=== PATIENT | female | born 1990 | race Caucasian/White ===

== ENCOUNTER → 2018-04-22 | Outpatient (REF) | payer OTHER | LOC: M LAB REF 17:27 | DX: Z12.4 Encounter for screening for malignant neoplasm of cervix (principal) ==

== ENCOUNTER → 2018-10-21 | Outpatient (CLI) | payer OTHER ==
[~2018-10-21] MED LIST: ACET500C PO; IBUP60TA PO; PREN1TAB11 PO
[2018-10-21 10:59] LABS: BASO % 0.4 % (0.0-1.0); EOS # 0.1 10^3/uL (0.0-0.50); EOS % 1.8 % (0.0-3.0); HEMATOCRIT 39.7 % (36.0-47.0); HEMOGLOBIN 13.4 g/dl (12.0-15.5); LYMPH # 1.5 10^3/uL (1.5-6.5); LYMPH % 20.7 % (24.0-44.0); MEAN CORPUSCULAR HEMOGLOBIN 29.1 pg (27.0-33.0); MEAN CORPUSCULAR HGB CONC 33.8 g/dl (32.0-36.5); MEAN CORPUSCULAR VOLUME 86.1 fl (80.0-96.0); MONO # 0.4 10^3/uL (0.0-0.8); MONO % 5.9 % (0.0-5.0); NEUTROPHILS # 5.1 10^3/uL (1.8-7.7); NEUTROPHILS % 70.9 % (36.0-66.0); PLATELET COUNT, AUTOMATED 276 10^3/uL (150-450); RED BLOOD COUNT 4.61 10^6/uL (4.00-5.40); WHITE BLOOD COUNT 7.2 10^3/uL (4.0-10.0)
[2018-10-21 12:39] LABS: CHLAMYDIA DNA AMPLIFICATION NEGATIVE (NEGATIVE); GC DNA AMPLIFICATION NEGATIVE (NEGATIVE)
[2018-10-21 13:18] LABS: HIV 1&2 SCREEN CENTAUR NEGATIVE (NEGATIVE); RUBELLA IgG QUALITATIVE IMMUNE (IMMUNE)
== END ==
LOC: M LAB 10:28
PROVIDERS: ATTEND Advanced Practice Midwife
DX: Z34.81 Encounter for supervision of other normal pregnancy, first trimester (principal)

== ENCOUNTER → 2018-12-13 | Outpatient (CLI) | payer OTHER ==
[~2018-12-13] MED LIST changes: +IBUP600T42 PO; -IBUP60TA PO
--- NOTE | 2018-12-13 13:01 | REP ---
Obstetric sonography: History: Supervision of for anatomy. Findings: Scanning through the gravid uterus demonstrates a viable single intrauterine gestation in a breech lie. motion is observed and heart rate is recorded at 160 beats per minute. An anterior placenta is seen grade 0 without evidence of previa. Amniotic fluid is subjectively normal. Closed cervical length is measured at 5.4 cm, viewed transabdominally. No extrauterine abnormalities observed. No anomaly is seen. The following anatomic structures are identified and felt to be sonographically unremarkable: cranium, choroid plexus, cavum, cerebellum and posterior fossa, face and profile, lungs, four-chamber heart with left and right ventricular outflow tract views, diaphragm, left-sided stomach, abdominal wall cord insertion, three-vessel umbilical cord, kidneys and bladder, spine, upper and lower extremities. Biometry chart: BPD 4.7 cm = 20 weeks 1 day Head circumference 17.6 cm = 20 weeks 1 day Abdominal circumference 15.1 cm = 20 weeks 2 days Femur length 3.3 cm = 20 weeks 1 day Humeral length 3.2 cm = 20 weeks 6 days HC/AC ratio normal 1.17. Cephalic index normal 0.73. Estimated weight 340 grams, 0 pounds 12 ounces, 59th percentile for 19 weeks 6 days. Impression: Viable single intrauterine gestation at 20 weeks 2 days by today's composite criteria. RIVAS by today's sonography April 30, 2019. anatomic survey is felt to be complete. Electronically Signed by Seth Saucedo MD 12/13/2018 01:23 P
== END ==
LOC: M RAD 11:32
PROVIDERS: ATTEND Obstetrics & Gynecology
DX: Z34.81 Encounter for supervision of other normal pregnancy, first trimester (principal)

== ENCOUNTER → 2019-02-10 | Outpatient (CLI) | payer OTHER ==
[2019-02-10 12:41] LABS: HEMATOCRIT 36.1 % (36.0-47.0); HEMOGLOBIN 11.8 g/dl (12.0-15.5); MEAN CORPUSCULAR HEMOGLOBIN 28.4 pg (27.0-33.0); MEAN CORPUSCULAR HGB CONC 32.7 g/dl (32.0-36.5); PLATELET COUNT, AUTOMATED 300 10^3/uL (150-450); RED BLOOD COUNT 4.15 10^6/uL (4.00-5.40)
== END ==
LOC: M LAB 10:47
PROVIDERS: ATTEND Advanced Practice Midwife
DX: Z36.89 Encounter for other specified antenatal screening (principal); Z3A.00 Weeks of gestation of pregnancy not specified

== ENCOUNTER → 2019-03-24 | Outpatient (CLI) | payer OTHER ==
[~2019-03-24] MED LIST changes: +ACET-683 PO; +IBUP80TA PO; +RANI15TA PO
--- NOTE | 2019-03-25 06:25 | REP ---
Obstetric sonography: History: Size date discrepancy, third trimester study. Evaluate growth and amniotic fluid index. Findings: Scanning through the gravid uterus demonstrates a viable single intrauterine gestation in a cephalic lie. motion is observed and heart rate is recorded at 141 beats per minute. An anterior grade 3 placenta is seen without evidence of previa or abruption. Amniotic fluid is subjectively normal. Closed cervical length viewed transabdominally measures 3.1 cm. No extrauterine abnormality is observed. There has been appropriate interval growth. The following anatomic structures are again identified and felt to be unremarkable: cranium, choroid plexus, cavum, face and profile, diaphragm, left-sided stomach, three-vessel cord, kidneys and bladder, spine. Biometry chart: BPD 8.6 cm 34 weeks 5 days Head circumference 30.6 cm 34 weeks 1 day Abdominal circumference 29.8 cm 33 weeks 5 days Femur length 6.7 cm 34 weeks 2 days Humeral length 5.7 cm 32 weeks 6 days HC/AC ratio normal 1.03. Cephalic index normal 0.80. Estimated weight 2334 grams, 5 pounds 2 ounces, 42nd percentile for 34 weeks 2 days. MT normal 11.7 cm. SD ratio normal by Doppler 2.60 in the umbilical cord artery. Impression: Viable single intrauterine gestation at 34 weeks 0 days by today's composite sonographic criteria. Expected gestational age estimate based on prior sonography is 34 weeks 5 days. RIVAS by prior sonography April 30, 2019. Electronically Signed by Seth Saucedo MD 03/25/2019 11:42 A
== END ==
LOC: M RAD 13:26
PROVIDERS: ATTEND Advanced Practice Midwife
DX: O26.843 Uterine size-date discrepancy, third trimester (principal)

== ENCOUNTER → 2019-04-03 | Outpatient (REF) | payer OTHER ==
[~2019-04-03] MED LIST changes: -ACET-683 PO; -IBUP80TA PO; -RANI15TA PO
== END ==
LOC: M LAB REF 12:50
PROVIDERS: ATTEND Advanced Practice Midwife
DX: Z34.83 Encounter for supervision of other normal pregnancy, third trimester (principal)

== ENCOUNTER 2019-04-27 07:56 | Inpatient (IN) | payer OTHER ==
[2019-04-27] VITALS (12 sets, daily range): BP systolic 113–137; BP diastolic 56–83
[~2019-04-27] VITALS: Ht 162.6 cm; Wt 67.0 kg
[2019-04-27] MEDS ORDERED: RANI15TA PO (08:21)
[2019-04-27] MEDS ORDERED: OXYTOCIN 30 UNITS IN 0.9% NaCl 500ML IV BAG (J2590) As Ordered ONE ×2 (09:27→10:50)
[2019-04-27 09:44] LABS: HEMATOCRIT 35.8 % (36.0-47.0); HEMOGLOBIN 11.8 g/dl (12.0-15.5); MEAN CORPUSCULAR HEMOGLOBIN 27.4 pg (27.0-33.0); MEAN CORPUSCULAR VOLUME 83.3 fl (80.0-96.0); PLATELET COUNT, AUTOMATED 282 10^3/uL (150-450)
--- NOTE | 2019-04-27 10:15 | HPE ---
DATE OF ADMISSION: 04/27/2019 REASON FOR ADMISSION: Labor. HISTORY OF PRESENT ILLNESS: Ms. Rizo is a 28-year-old, 2, para 1, who presents at 39 weeks and 1 day by her last menstrual period and confirmed by first trimester ultrasound with complaints of contractions. She reports contractions which started at 4:00 a.m. that have continue to increase in intensity and frequency. She denies any vaginal bleeding or leakage of fluid. She reports active movements. Her course has been unremarkable. She initiated care in her first trimester an has been appropriate throughout. PAST MEDICAL HISTORY: Asthma as a child. PAST SURGICAL HISTORY: None. PAST OBSTETRICAL HISTORY: She is a 2, para 1. She has had one term vaginal delivery proven to 5 pounds 7 ounces. MEDICATIONS: Zantac and vitamins. ALLERGIES: No known drug allergies. SOCIAL HISTORY: Denies any alcohol, tobacco or drug use during her . PHYSICAL EXAMINATION: Vital signs are stable. She is afebrile. She has a category one heart tracing with contractions every 4-5 minutes. Lungs: Clear to auscultation bilaterally. Cardiovascular: Heart regular rate and rhythm. Abdomen: Gravid, nontender. Estimated weight (EFW) of 2800 grams. She was 5 cm dilated, completely effaced, bulging bag of membranes. LABS: Blood type is A+. Antibody screen is negative. Rubella is immune. RPR is nonreactive. Hepatitis surface antigen negative. HIV is negative. Hepatitis C is nonreactive. Chlamydia and gonorrhea screens are negative. She had a normal one hour Glucola. She is GBS negative. ASSESSMENT: 1. Ms. Rizo is a 28-year-old, 2, para 1, at 39 weeks and 1 day estimated gestational age in active labor. 2. Reassuring status. PLAN: 1. Admit to labor and delivery. CBC, RPR, type and screen. 2. Anticipate spontaneous vaginal delivery. MTDD
--- NOTE | 2019-04-27 11:34 | DN ---
DATE OF DELIVERY: 04/27/2019 TIME OF : 1006 hours. GENDER: Female. SCORE 9 and 9. WEIGHT: 2580 grams (5 pounds 11 ounces). LACERATIONS: None. ANESTHESIA: None. COUNTS: Five laparotomy sponges accounted for prior to and after delivery. DELIVERY NOTE: On 04/27/2019, at 1006 hours, Ms. Rizo, a 28-year-old, 2, now para 2, had a spontaneous vaginal delivery of a live-born female infant, score 9 and 9. Weight was 2580 grams or 5 pounds 11 ounces. Head was delivered occiput anterior (OA) over intact perineum, followed by delivery of shoulders and corpus. Infant was handed mom with a good cry. Cord was clamped times two . It was cut by the father of baby under my direction. Placenta was then drained, delivered grossly intact. A premixed bag of 500 mL of normal saline with 30 units of Pitocin was bolused along with uterine massage. Uterus was firm. On inspection, the cervix, vagina and perineum was grossly intact and hemostatic. Mom and baby recovered stable condition. [facility]
[2019-04-27] MEDS ORDERED: METHYLERGONOVINE MALEATE 0.2 MG TAB PO PRN (11:45)
[2019-04-27] MEDS ORDERED: ACETAMINOPHEN TAB 650MG DOSE (2X325MG) PO PRN (11:45)
[2019-04-27] MEDS ORDERED: IBUPROFEN 600 MG TAB PO PRN (11:45)
[2019-04-27] MEDS ORDERED: RHOGAM 300 MCG (1500 IU) INJ (J2790) IM SCH (11:45)
[2019-04-27] MEDS ORDERED: MEASLES,MUMPS,RUBELLA VACCINE INJ (MMR-II) (90707) SC SCH (11:45)
[2019-04-27] MEDS ORDERED: MOM 30ML SUSPENSION UDC PO PRN (11:45)
[2019-04-27] MEDS ORDERED: DOCUSATE SODIUM 100 MG CAP PO PRN (11:45)
[2019-04-27] MEDS ORDERED: ACETAMINOPHEN 500 MG TAB PO PRN (11:45)
[2019-04-27] MEDS ORDERED: DIBUCAINE 1% OINTMENT 30GM TOP PRN (11:45)
[2019-04-27] MEDS ORDERED: IBUPROFEN 800 MG TAB PO PRN (11:45)
[2019-04-27] MEDS ORDERED: OXYTOCIN DRIP 30 UNITS in IV 1 EA IV SCH ×2 (12:00→13:00)
[2019-04-28 06:11] VITALS: BP 118/66
[2019-04-28] MEDS ORDERED: PRENATAL VITAMINS CHEWABLE TABLET PO SCH (09:00)
[2019-04-28] MEDS ORDERED: ACET-683 PO (13:55)
[2019-04-28] MEDS ORDERED: IBUP80TA PO (13:55)
== END 2019-04-28 15:40 | disposition home or self-care (01) | DRG 560 ==
LOC: M LDO 07:56 → M LDI 09:04 → M OBS 13:30
PROVIDERS: ADMIT Obstetrics & Gynecology; ATTEND Obstetrics & Gynecology
PROC: 10E0XZZ Delivery of Products of Conception, External Approach (ICD-10-PCS; principal; 2019-04-27)
DX: O80 Encounter for full-term uncomplicated delivery (principal); Z37.0 Single live birth; Z3A.39 39 weeks gestation of pregnancy

== ENCOUNTER → 2020-02-12 | Outpatient (REF) | payer OTHER ==
[~2020-02-12] MED LIST changes: +ACET-683 PO; +IBUP80TA PO; +RANI15TA PO
== END ==
LOC: M WUC 16:27
PROVIDERS: ATTEND Physician Assistant
DX: J02.9 Acute pharyngitis, unspecified (principal)